=== PATIENT | female | born 1985 | race Caucasian/White ===

== ENCOUNTER → 2025-08-01 | Outpatient (REF) | payer OTHER ==
[2025-08-01 18:16] LABS: TOTAL PROTEIN,RANDOM URINE 11.0 MG/DL (0.0-14.0)
[2025-08-01 18:32] LABS: APPEARANCE, URINE CLEAR (CLEAR); BACTERIA, URINE AUTO NEGATIVE (NEGATIVE); BILIRUBIN, URINE AUTO NEGATIVE (NEGATIVE); BLOOD, URINE BLOOD NEGATIVE (NEGATIVE); GLUCOSE, URINE (UA) AUTO NEGATIVE (NEGATIVE); KETONE, URINE AUTO NEGATIVE (NEGATIVE); LEUKOCYTE ESTERASE, URINE AUTO NEGATIVE (NEGATIVE); MUCUS, URINE SMALL (NEGATIVE); NITRITE, URINE AUTO NEGATIVE (NEGATIVE); PROTEIN, URINE AUTO NEGATIVE (NEGATIVE); RBC, URINE AUTO 3 /HPF (0-3); SPECIFIC GRAVITY URINE AUTO 1.020 (1.002-1.035); SQUAMOUS EPITHELIAL CELL UR AU 3 /HPF (0-6); UROBILINOGEN, URINE AUTO 2.0 mg/dL (0.0-2.0); WBC, URINE AUTO 1 /HPF (0-3)
[2025-08-01 20:07] LABS: BASO # 0.0 10^3/uL (0.0-0.2); BASO % 0.1 % (0.0-1.0); EOS # 0.1 10^3/uL (0.0-0.5); EOS % 1.7 % (0.0-3.0); LYMPH # 2.5 10^3/uL (1.5-5.0); LYMPH % 35.1 % (24.0-44.0); MONO # 0.3 10^3/uL (0.0-0.8); MONO % 4.1 % (2.0-8.0); NEUTROPHILS # 4.1 10^3/uL (1.5-8.5); NEUTROPHILS % 58.7 % (36.0-66.0); PLATELET COUNT, AUTOMATED 300 10^3/uL (150-450)
[2025-08-01 20:31] LABS: C REACTIVE PROTEIN QUANTITATIV 2.97 MG/DL (<1.0)
[2025-08-01 20:32] LABS: ERYTHROCYTE SEDIMENTATION RATE 67 mm/hr (0-20)
[2025-08-01 21:55] LABS: COMPLEMENT C4 33.9 MG/DL (12-36)
[2025-08-05 20:47] LABS: COMPLEMENT TOTAL (CH50) > 60 U/mL (31-60)
[2025-08-06 11:13] LABS: C1q BINDING IMMUNE COMPLEX 2.3 mcg Eq/mL (< OR = 25.1)
[2025-08-09 18:07] LABS: C1Q ANTIBODY < 1 RU/mL (<26)
== END ==
LOC: M SFHCRHEU 15:26
PROVIDERS: ATTEND Internal Medicine
DX: L50.8 Other urticaria (principal); L56.8 Other specified acute skin changes due to ultraviolet radiation